=== PATIENT | male | born 1985 | race Asian ===

== ENCOUNTER 2023-03-07 07:21 | Emergency (ER) | payer SELFPAY ==
[2023-03-07 07:22] VITALS: BP 118/79; PULSE 62; RESP 17; TEMP 36.7; O2SAT 100; BMI 25.6
--- NOTE | 2023-03-07 07:37 | XR_ITS ---
PROCEDURE INFORMATION: Exam: XR Right Tibia and Fibula Exam date and time: 03/07/2023 7:58 AM Age: 37 years old Clinical indication: Injury or trauma; Fall; Laceration; Lower leg; Right; Without foreign body; Additional info: Fall-- 2 large lacerations to calf and lower leg TECHNIQUE: Imaging protocol: Radiologic exam of the right tibia and fibula. Views: 2 views. COMPARISON: No relevant prior studies available. FINDINGS: Bones/joints: No acute fracture or malalignment. Soft tissues: Normal. IMPRESSION: No acute fracture or malalignment.
--- NOTE | 2023-03-07 07:45 | PC.NURSE ---
XR AT BEDSIDE
--- NOTE | 2023-03-07 08:10 | PC.NURSE ---
dr saleem at bedside
--- NOTE | 2023-03-07 08:11 | HMH.EDWNDL ---
Discharge Plan Disposition Chief Complaint: Wound/Laceration Referrals Follow up/Referrals: Provider,Referral, [Primary Care Provider] - See instructions Activity Restrictions/Add. Instructions Additional Instructions/Restrictions: Keep the wound dry and clean at all times. Avoid immersing it in water. Do not go into a hot tub, Jacuzzi, swimming pool, pichardo, ocean. Return to the emergency department immediately if you get worse in any way. Have the wound checked by a health professional in about 3 days. Have the jeremy removed in approximately 7 to 10 days. Clinical Impressions Clinical Impression: Laceration Instructions Patient Instructions: DI for Laceration Repair Discharge ED Provider: Compa Zuniga Wound/Laceration HPI General Chief Complaint: Wound/Laceration Stated Complaint: lacerations Time Seen by Provider: 03/07/23 08:11 Mode of Arrival: EMS Source of Information: Patient and EMS Limitations: No Limitations Description of Symptoms (Recalled from ER Triage Doc. by RN): PT BROUGHT IN VIA EMS FOR A FALL INTO A GLASS DOOR. 2 LACERATIONS TO RLE 2 1/2 INCHES AND 3 INCHES. PT HAD BEEN DRINKING ETOH SINCE LAST NIGHT. History of Present Illness HPI narrative: The patient presents to the emergency department via EMS accompanied by his significant other. He suffered 2 lacerations to the right leg after having accidentally cut it on a glass door. The patient is admitting to having drank excessive alcohol last night. He denies any other injuries. Onset (ago): hour(s) (2) Related Data Allergies Allergy/AdvReac Type Severity Reaction Status Date / Time No Known Allergies Allergy Verified 03/07/23 07:36 [facility] Disclaimer: The information contained in this section may have been updated after the patient was seen, as this information can be updated by other users. Social History Smoking Status: Never smoker alcohol intake: current current occupational status: employed Travel in the last 8 weeks: None ROS Obtained: Yes All systems reviewed & no additional complaints except as documented Physical Exam General General appearance: alert Head Head exam: atraumatic Eye Eye exam: Present normal appearance ENT ENT exam: Present normal exam Neck Neck exam: Present normal inspection and full ROM; Absent tenderness or meningismus Chest Chest inspection: Present normal inspection and symmetric chest wall rise; Absent tenderness Respiratory Respiratory exam: Present normal lung sounds bilaterally; Absent respiratory distress or accessory muscle use Cardiovascular Cardiovascular exam: Present regular rate, normal rhythm and normal heart sounds Abdominal Exam Abdominal exam: Present soft and normal bowel sounds; Absent distention, tenderness, heel tap sign, Ray's sign, Rovsing's sign, tenderness at McBurney's Point or mass Extremities Exam Extremities exam: Present full ROM and other (There are 2 lacerations to the right leg. There is no active bleeding. The extremity is neurovascularly intact distally.) Back Exam Back exam: Present normal inspection; Absent CVA tenderness (R) or CVA tenderness (L) Neurological Exam Neurological exam: Present alert and oriented X3 Psychiatric Psychiatric exam: Present normal affect and normal mood Skin Skin exam: Present warm, dry, intact and normal color Medical Decision Making Chaz Inquiry Pt receiving controlled substance: No Vital Signs: 03/07/23 07:22 Temperature 98.0 F Temperature Source Oral Pulse Rate [Right Brachial] 62 Respiratory Rate 17 Blood Pressure [Right Arm] 118/79 Blood Pressure Mean [Right Arm] 92 Blood Pressure Source [Right Arm] Automatic Cuff Blood Pressure Position [Right Arm] Standing 02 Sat by Pulse Oximetry 100 Oxygen Delivery Method Nasal Cannula Orders (Tests/Meds): ED MEDICATIONS Discontinued Medications Generic Name Dose Route Start Last Admin Trade Name Freq PRN Reason Stop Dose Admin Lidocaine/
[2023-03-07 08:43] VITALS: BP 122/78; PULSE 70; RESP 18; TEMP 36.7; O2SAT 100
== END 2023-03-07 08:48 | disposition home or self-care (01) ==
PROVIDERS: Emergency Provider Emergency Medicine
DX: S81.811A Laceration without foreign body, right lower leg, initial encounter (principal); W25.XXXA Contact with sharp glass, initial encounter; F10.929 Alcohol use, unspecified with intoxication, unspecified; Z23 Encounter for immunization
CPT/HCPCS: 12006; 73590; 90471; 90714; 96372; 99283

== ENCOUNTER 2023-03-09 17:35 | Emergency (ER) | payer SELFPAY ==
[2023-03-09 17:45] VITALS: BP 124/80; PULSE 75; RESP 18; TEMP 37; O2SAT 100; BMI 23.5
[2023-03-09 17:58] VITALS: BP 124/80; PULSE 75; RESP 18; TEMP 37; O2SAT 100
--- NOTE | 2023-03-09 18:23 | EXP.UTC ---
Discharge Plan Disposition Patient Disposition: Home, Self-Care Condition: Good Referrals Follow up/Referrals: Provider,Referral, [Primary Care Provider] - See instructions Activity Restrictions/Add. Instructions Additional Instructions/Restrictions: Keep wound clean and dry like you was informed in the ED Removal of jeremy as instructed by the Emergency room Watch the area for redness, swelling, drainage or streaks if seen go the Emergency Room Return if needed Stay off of leg as much as possible Clinical Impressions Clinical Impression: Visit for wound check Discharge ED Provider: Letty Anderson [facility] [place] HPI General Stated complaint: ao 03/07 left leg lac Mode of Arrival: Ambulatory Source of Information: Patient Limitations: No Limitations Time Seen by Provider: 03/09/23 18:24 Description of Symptoms (Recalled from Triage Doc. by RN): PATIENT STATES HE HAD LACERATIONS TO RIGHT LOWER LEG THAT WERE CLOSED WITH JEREMY IN ER. HE WAS ADVISED BY ER MD TO HAVE LACERATIONS CHECKED FOR SIGNS/SYMPTOMS OF INFECTION IN 2 DAYS HEENT Symptoms (Recalled from RN notes): No Resp Symptoms (Recalled from RN notes): No Skin Symptoms (Recalled from RN notes): Yes MS Symptoms (Recalled from RN notes): No Functional Status (Recalled from RN notes): WNL History of Present Illness Provider Complaint: Patient had laceration to his right lower leg closed in the ED with jeremy States that the ED physician told him to follow up in a couple of days and let someone look at it to make sure that it isnt getting infected Denies drainage denies redness denies fever Related Data Allergies Allergy/AdvReac Type Severity Reaction Status Date / Time No Known Allergies Allergy Verified 03/07/23 07:36 Worker's Comp Is this a Worker's Comp case?: No [facility] Disclaimer: The information contained in this section may have been updated after the patient was seen, as this information can be updated by other users. Social History (Updated 03/07/23 @ 08:34 by oCmpa Zuniga MD) Smoking Status: Never smoker alcohol intake: current current occupational status: employed Travel in the last 8 weeks: None ROS Obtained: Yes All systems reviewed & no additional complaints except as documented and Yes Systems reviewed as appropriate & no additional complaints except as documented Constitutional Constitutional: Reports system reviewed and no additional complaints, except as documented, Reports as per HPI, Denies chills and Denies fever(s) ENT Ears, Nose, Mouth, and Throat: Reports system reviewed and no additional complaints, except as documented and Reports as per HPI Cardiovascular Cardiovascular: Reports system reviewed and no additional complaints, except as documented and Reports as per HPI Respiratory Respiratory: Reports system reviewed and no additional complaints, except as documented and Reports as per HPI Gastrointestinal Gastrointestingal: Reports system reviewed and no additional complaints, except as documented and as per HPI Musculoskeletal Musculoskeletal: Reports system reviewed and no additional complaints, except as documented and Reports as per HPI Integumentary/Breasts Skin/Breast: Reports system reviewed and no additional complaints, except as documented and Reports as per HPI Comments: wound check on laceration on right lower leg/calf Physical Exam General General appearance: alert and in no apparent distress Respiratory Respiratory exam: Present normal lung sounds bilaterally; Absent respiratory distress or wheezes Cardiovascular Cardiovascular exam: Present regular rate, normal rhythm and normal heart sounds Expanded Lower Extremity Exam Right: Leg image: 1. patient has two lacerations noted that was closed with jeremy on right lower leg No redness, no drainage no swelling noted at this time Lower leg exam: Present other (lacerations that was closed a couple days ago in the ED no redness, no drainage, no swel
== END 2023-03-09 18:38 | disposition home or self-care (01) ==
PROVIDERS: Emergency Provider Nurse Practitioner
DX: S81.811A Laceration without foreign body, right lower leg, initial encounter (principal); Z51.89 Encounter for other specified aftercare
CPT/HCPCS: 99211; 99213; G0463

== ENCOUNTER 2023-03-11 11:41 | Emergency (ER) | payer SELFPAY ==
[2023-03-11 12:02] VITALS: BP 134/83; PULSE 79; RESP 20; TEMP 36.8; O2SAT 96
[2023-03-11 12:31] VITALS: BP 132/86; PULSE 78; O2SAT 97
--- NOTE | 2023-03-11 12:46 | CT_ITS ---
FINAL REPORT CLINICAL HISTORY: trauma/pain rt lower leg FINDINGS: Thin section axial CT images of the abdomen, pelvis and lower extremities were obtained with contrast. Multiplanar reformatted images were also obtained and reviewed. ABDOMEN AND PELVIS: There is no abdominal aortic aneurysm or dissection. The celiac axis and proximal superior mesenteric artery are unremarkable. There is no renal artery stenosis. The inferior mesenteric artery is patent. There is no significant stenosis of the right common iliac artery or external right iliac artery. There is no significant stenosis of the left common iliac artery or external left iliac artery. The internal iliac arteries are patent. RIGHT LOWER EXTREMITY: There is no significant stenosis of the right common femoral or superficial femoral arteries. The right deep femoral artery is patent. The right popliteal artery is patent. There is three-vessel runoff to the distal lower leg. LEFT LOWER EXTREMITY: There is no significant stenosis of the left common femoral or superficial femoral arteries. The left deep femoral artery is patent. The left popliteal artery is patent. There is three-vessel runoff to the distal lower leg. IMPRESSION: No significant vascular disease. Reviewed, Interpreted and Dictated by Bernard Rayo III, MD Transcribed by Jocelin Byrd Authenticated and [facility]
--- NOTE | 2023-03-11 12:49 | HMH.EDGENADL ---
Discharge Plan Disposition Patient Disposition: Home, Self-Care Condition: Good Referrals Follow up/Referrals: Provider,Referral, [Primary Care Provider] - See instructions Activity Restrictions/Add. Instructions Additional Instructions/Restrictions: At this time was felt you are safe to be discharged home. If new or worsening symptoms please not hesitate to return to the emergency department. Please follow-up for your staple removal as discussed Clinical Impressions Clinical Impression: Acute pain of right lower extremity Discharge ED Provider: Ulices Cazares General Adult HPI General Chief complaint: Extremity Injury, Lower Stated complaint: RT leg inflammation/pain 03/07 jeremy Time Seen by Provider: 03/11/23 12:40 Mode of Arrival: Wheelchair Source of Information: Patient and Significant Other Limitations: No Limitations Description of Symptoms (Recalled from ER Triage Doc. by RN): pt to ed c/o right lower leg pain. pt reports he had jeremy placed 03/07 and reports he belives his leg is infected. pt denies fever. pt reports increased pain. minimal drainage noted to existing dressing. pt seemingly lethargic on arrival. SO at the bedside states pt has been drinking. History of Present Illness HPI narrative: Patient is a 37-year-old male with no significant past medical history who presents to the emergency department for evaluation of right lower extremity pain. Patient received traumatic injury when he accidentally put his right leg through glass on 03-07-2023 resulting in 2 lacerations over his right distal lower extremity. X-ray was obtained which showed no acute fracture or malalignment, wounds underwent primary repair with jeremy without incident and patient was successfully discharged. Patient has since had worsening right lower extremity pain distal to the sites of laceration, his extremity has become cold compared to the contralateral side, pain is 7 out of 10. Patient is able to minimally ambulate. Patient has drank a few beers prior to arrival and is accompanied by his significant other. No other acute complaints at this time. Related Data Allergies Allergy/AdvReac Type Severity Reaction Status Date / Time No Known Allergies Allergy Verified 03/07/23 07:36 [facility] Disclaimer: The information contained in this section may have been updated after the patient was seen, as this information can be updated by other users. Social History (Updated 03/07/23 @ 08:34 by Compa Zuniga MD) Smoking Status: Never smoker alcohol intake: current current occupational status: employed Travel in the last 8 weeks: None ROS Obtained: Yes Systems reviewed as appropriate & no additional complaints except as documented Physical Exam General General appearance: alert and in no apparent distress Head Head exam: atraumatic and normocephalic Eye Eye exam: Present PERRL and EOMI ENT ENT exam: Present mucous membranes moist Neck Neck exam: Present normal inspection Chest Chest inspection: Present normal inspection and symmetric chest wall rise Respiratory Respiratory exam: Present normal lung sounds bilaterally; Absent respiratory distress Cardiovascular Cardiovascular exam: Present regular rate and normal rhythm Abdominal Exam Abdominal exam: Present soft; Absent tenderness Extremities Exam Extremities exam: Present other (2 linear lacerations distal right lower extremity well approximated with jeremy, compartments soft in calf, edema over the ankle, palpable dorsal pedal pulse, dopplerable pulse posterior tibial with overlying edema. No significant pain to passive stretch.) Neurological Exam Neurological exam: Present alert and oriented X3 Psychiatric Psychiatric exam: Present normal affect Skin Skin exam: Present warm and dry Medical Decision Making Chaz Inquiry Pt receiving controlled substance: No Vital Signs: 03/11/23 12:02 03/11/23 12:31 03/11/23 13:00 Temperature 98.2 F Temperat
--- NOTE | 2023-03-11 12:50 | PC.NURSE ---
Ct notified of scan. per MD, we are not waiting on labs
[2023-03-11 13:00] VITALS: BP 121/79; PULSE 87; O2SAT 98
[2023-03-11 13:40] LABS: Basophils # 0.1 K/mm3 (0-0.2); Basophils % 1.4 % (0.1-2.0); Eosinophils # 0.1 K/mm3 (0.0-0.4); Eosinophils % 2.5 % (0.1-12.0); Hemoglobin 14.6 g/dL (14.1-18.0); Lymphocytes # 2.8 K/mm3 (0.7-4.5); Lymphocytes % 48.8 % (10-50); Mean Corpuscular HGB Conc 32.4 g/dL (31.8-35.4); Mean Corpuscular Hemoglobin 31.8 pg (27.0-31.2); Mean Corpuscular Volume 98.1 fl (80-94); Mean Platelet Volume 7.9 fl (7.4-10.4); Monocytes # 0.5 K/mm3 (0.1-1.0); Monocytes % 8.8 % (1.7-9.3); Neutrophils # 2.3 K/mm3 (1.8-7.8); Neutrophils % 38.5 % (37.0-80.0); Platelet Count 227 K/mm3 (142-424); Red Blood Count 4.59 M/mm3 (4.60-6.20); Red Cell Distribution Width 12.6 % (11.5-17.5); White Blood Count 5.8 K/mm3 (4.8-10.8)
[2023-03-11 13:42] LABS: Alanine Aminotransferase 109 U/L (12-78); Albumin Level 4.3 g/dl (3.5-5.0); Albumin/Globulin Ratio 1.2 (1.1-1.8); Alkaline Phosphatase 91 U/L (38-126); Anion Gap 7.2 mEq/L (5-15); Aspartate Amino Transferase 97 U/L (17-59); Bilirubin,Total 0.5 mg/dl (0.2-1.3); Blood Urea Nitrogen 7 mg/dl (9-20); Calcium 8.5 mg/dl (8.4-10.2); Carbon Dioxide 28 mmol/L (22.0-30.0); Chloride 109 mmol/L (98-107); Creatinine Clearance Estimated 6 mL/min (50-200); Estimated Glomerular Filt Rate 152 ml/min (>60); GFR (African American) 184 ML/MIN (>60); Globulin 3.6 g/dL (1.3-3.2); Glucose 102 mg/dl (74-100); Potassium 4.2 mmoL/L (3.5-5.1); Sodium 140 mmol/L (136-145); Total Protein,Serum 7.9 g/dl (6.3-8.2)
[2023-03-11 13:51] LABS: Creatine Kinase 92 U/L (55-170)
[2023-03-11 14:05] LABS: C-Reactive Protein 6.8 mg/L (0-4)
[2023-03-11 14:36] LABS: Erythrocyte Sedimentation Rate 22 mm/hr (0-15)
[2023-03-11 16:12] VITALS: BP 118/80; PULSE 84; RESP 20; TEMP 36.8; O2SAT 99
== END 2023-03-11 16:13 | disposition home or self-care (01) ==
PROVIDERS: Emergency Provider Emergency Medicine
DX: M79.604 Pain in right leg (principal); G89.18 Other acute postprocedural pain
CPT/HCPCS: 75635; 80053; 82550; 85025; 85651; 86140; 96374; 99285; Q9967

== ENCOUNTER 2023-03-17 12:57 | Emergency (ER) | payer SELFPAY ==
--- NOTE | 2023-03-17 13:32 | EXP.UTC ---
Discharge Plan Referrals Follow up/Referrals: Provider,ReferralMD [Primary Care Provider] - See instructions [place]charge ED Provider[place] Kendrick Gall[place] [facility] [place] General Stated complaint: Suture removal Time Seen by Provider: 03/17/23 13:32 Related Data Allergies Allergy/AdvReac Type Severity Reaction Status Date / Time No Known Allergies Allergy Verified 03/07/23 07:36 [facility] Disclaimer: The information contained in this section may have been updated after the patient was seen, as this information can be updated by other users. Social History (Updated 03/07/23 @ 08:34 by Compa Zuniga MD) Smoking Status: Never smoker alcohol intake: current current occupational status: employed Travel in the last 8 weeks: None
[2023-03-17 13:45] VITALS: BP 132/69; BP 143/91; PULSE 78; RESP 20; TEMP 36.9; O2SAT 100; BMI 22.1
--- NOTE | 2023-03-17 13:50 | PC.NURSE ---
Pt came into have jeremy removed. As we were taking out jeremy pt became light headed. We stopped laid pts back, propped fit up, took vitals they were unremarkable, and placed wet rag on pts head. We continued to take out a few more jeremy and explained that some of them were not ready to come out. Kept asking neuro questions (Name, , who spouse was). Once he come more alert gave a few drinks of OJ. Advised that he needs to come back on to try and take out the rest. Kept pt to monitor for a few mins vitals have continued to be stable. He got up and walked by him self and stated that he felt stable and okay. stated that she was going to stay home with him to watch him.
== END 2023-03-17 13:45 | disposition home or self-care (01) ==
PROVIDERS: Emergency Provider Nurse Practitioner Family
DX: Z53.21 Procedure and treatment not carried out due to patient leaving prior to being seen by health care provider (principal)

== ENCOUNTER 2023-03-20 15:28 | Emergency (ER) | payer SELFPAY ==
[2023-03-20 16:08] VITALS: BP 133/85; PULSE 92; RESP 16; TEMP 36.8; O2SAT 98; BMI 22.1
[2023-03-20 16:10] VITALS: BP 133/85; PULSE 92; RESP 16; TEMP 36.8
== END 2023-03-20 16:14 | disposition home or self-care (01) ==
PROVIDERS: Emergency Provider Physician Assistant
DX: Z48.02 Encounter for removal of sutures (principal); S81.812A Laceration without foreign body, left lower leg, initial encounter

== ENCOUNTER 2023-07-03 14:51 | Emergency (ER) | payer SELFPAY ==
[2023-07-03 14:52] VITALS: BP 144/91; PULSE 85; RESP 16; TEMP 36.9; O2SAT 98; BMI 22.0
--- NOTE | 2023-07-03 15:19 | PC.NURSE ---
Patient called out stating he is in a lot of pain; MD notified no new orders at this time. Call quevedo within reach
--- NOTE | 2023-07-03 15:26 | CT_ITS ---
FINAL REPORT TECHNIQUE: Axial imaging of the lumbar spine was obtained without contrast. Sagittal and coronal reformatted images were also obtained and reviewed. This study was performed with techniques to keep radiation doses as low as reasonably achievable (ALARA). Individualized dose reduction techniques using automated exposure control or adjustment of mA and/or kV according to the patient's size were employed. CLINICAL HISTORY: LBP never imaged, atraumatic COMPARISON: None FINDINGS: There is no fracture. The vertebral alignment is normal. The disc spaces are preserved.There is no evidence of significant central canal stenosis. T12-L1: No evidence of central canal stenosis or neural foraminal narrowing. L1-L2: No evidence of central canal stenosis or neural foraminal narrowing. L2-L3: No evidence of central canal stenosis or neural foraminal narrowing. L3-L4: An annular bulge is present. No evidence of central canal stenosis or neural foraminal narrowing. L4-L5: An annular bulge is present as well as a broad-based left paracentral disc protrusion which impinges on the left L5 nerve root. There is mild right and moderate left neural foraminal narrowing. No evidence of central canal stenosis is seen. L5-S1: There is partial sacralization of the L5 vertebral body on the left. No evidence of central canal stenosis or neural foraminal narrowing. IMPRESSION: Degenerative change most prominent at the L4-5 level as described. Reviewed, Interpreted and Dictated by Bernard Rayo III, MD Transcribed by Renu Mckeon Authenticated and [facility]
--- NOTE | 2023-07-03 15:27 | HMH.EDGENADL ---
Discharge Plan Disposition Patient Disposition: Home, Self-Care Referrals Follow up/Referrals: Janes Kirk MD [Staff Physician] - See instructions Provider,MD Jose Luis [Primary Care Provider] - See instructions Activity Restrictions/Add. Instructions Additional Instructions/Restrictions: Primary care referral has been placed, call them to discuss options regarding insurance and physical therapy. Call your family doctor to establish care for this visit to the emergency department and schedule follow-up within 48 hours to ensure improvement. If you have any worsening of your condition or any other concerning signs or symptoms, including weakness, inability to urinate, or incontinence of stool or urine, return to the emergency department or your primary care doctor for further evaluation. Take Tylenol 1000 mg every 6 hours (4 times daily) and ibuprofen 400 mg every 6 hours (4 times daily) as needed with food and water to prevent GI upset and kidney damage. Clinical Impressions Clinical Impression: Lumbar radiculopathy Sciatica Qualifiers: Laterality: left Qualified Code(s): M54.32 - Sciatica, left side Instructions Patient Instructions: DI for Low Back Pain Discharge ED Provider: Jakub Lion General Adult HPI General Chief complaint: Back Pain/Injury Stated complaint: right side lower back Time Seen by Provider: 07/03/23 15:17 Mode of Arrival: Ambulatory Source of Information: Patient Limitations: No Limitations Description of Symptoms (Recalled from ER Triage Doc. by RN): Presents to ED with complaints of non-traumatic midlumbar pain x 2 days. Denies OTC meds [employer]PER[employer]. Patient is currently wearing a back brace with minimal relief. History of Present Illness HPI narrative: Is a 38-year-old male with history of atraumatic back pain presenting with back pain. Patient states that about 2 days prior to arrival, he was getting out of the shower and lifted his leg and had sudden onset lower back pain. No evidence of weakness. No bowel or bladder dysfunction, saddle anesthesia, heavy lifting or exertion. Has not taken anything for the pain. Pain is severe when he tries to move or change positions, better when resting. Radiates down his left leg. Related Data Allergies Allergy/AdvReac Type Severity Reaction Status Date / Time No Known Allergies Allergy Verified 03/07/23 07:36 [facility] Disclaimer: The information contained in this section may have been updated after the patient was seen, as this information can be updated by other users. Social History (Updated 03/07/23 @ 08:34 by Compa Zuniga MD) Smoking Status: Current every day smoker alcohol intake: current current occupational status: employed Travel in the last 8 weeks: None ROS Obtained: Yes All systems reviewed & no additional complaints except as documented Physical Exam General General appearance: alert, in no apparent distress and other ( ) Head Head exam: atraumatic and normocephalic Eye Eye exam: Present normal appearance, PERRL and EOMI ENT ENT exam: Present mucous membranes moist Neck Neck exam: Present normal inspection, full ROM and trachea midline Respiratory Respiratory exam: Absent respiratory distress, wheezes, stridor, accessory muscle use or prolonged expiratory phase Cardiovascular Cardiovascular exam: Present regular rate and normal rhythm Abdominal Exam Abdominal exam: Present soft; Absent distention, tenderness, guarding, rebound, rigidity or normal bowel sounds Extremities Exam Extremities exam: Absent edema Back Exam Back exam: Present tenderness, muscle spasm, vertebral tenderness and sciatic notch tenderness (L); Absent straight leg raise (R) Neurological Exam Neurological exam: Present alert, oriented X3, CN II-XII intact and normal gait; Absent motor sensory deficit Skin Skin exam: Present warm and dry; Absent diaphoresis or erythema Medical Decision Making Medical Records Medical records reviewed: Yes I review
--- NOTE | 2023-07-03 15:59 | PC.NURSE ---
Lab notified for lab order.
--- NOTE | 2023-07-03 16:10 | PC.NURSE ---
Rounded on patient nothing needed at this time. Call quevedo within reach.
[2023-07-03 16:14] LABS: Basophils % 0.7 % (0.1-2.0); Eosinophils # 0.1 K/mm3 (0.0-0.4); Eosinophils % 1.4 % (0.1-12.0); Hematocrit 46.5 % (42.0-52.0); Hemoglobin 15.1 g/dL (14.1-18.0); Lymphocytes # 1.2 K/mm3 (0.7-4.5); Mean Corpuscular HGB Conc 32.4 g/dL (31.8-35.4); Mean Corpuscular Hemoglobin 30.2 pg (27.0-31.2); Mean Corpuscular Volume 93.1 fl (80-94); Mean Platelet Volume 8.6 fl (7.4-10.4); Monocytes # 0.3 K/mm3 (0.1-1.0); Monocytes % 7.4 % (1.7-9.3); Neutrophils # 2.7 K/mm3 (1.8-7.8); Neutrophils % 62.5 % (37.0-80.0); Platelet Count 141 K/mm3 (142-424); Red Blood Count 4.99 M/mm3 (4.60-6.20); Red Cell Distribution Width 13.7 % (11.5-17.5); White Blood Count 4.3 K/mm3 (4.8-10.8)
[2023-07-03 16:54] VITALS: BP 135/93; PULSE 80; RESP 16; TEMP 36.9; O2SAT 98
== END 2023-07-03 16:59 | disposition home or self-care (01) ==
PROVIDERS: Emergency Provider Emergency Medicine
DX: M54.42 Lumbago with sciatica, left side (principal); M54.16 Radiculopathy, lumbar region; F17.200 Nicotine dependence, unspecified, uncomplicated
CPT/HCPCS: 36415; 72131; 85025; 96372; 99284

== ENCOUNTER 2023-10-14 21:23 | Emergency (ER) | payer SELFPAY ==
[2023-10-14 21:21] VITALS: BP 118/75; PULSE 84; RESP 14; TEMP 36.7; O2SAT 97; BMI 26.6
[2023-10-14 21:30] VITALS: BP 142/110; PULSE 73; O2SAT 96
--- NOTE | 2023-10-14 21:35 | XR_ITS ---
PROCEDURE INFORMATION: Exam: XR Chest Exam date and time: 10/14/2023 9:42 PM Age: 38 years old Clinical indication: Pain; Left-sided; Additional info: Trauma, left lateral rib pain TECHNIQUE: Imaging protocol: Radiologic exam of the chest. Views: 2 views. COMPARISON: No relevant prior studies available. FINDINGS: Lungs: Unremarkable. No consolidation. Pleural spaces: Unremarkable. No pleural effusion. No pneumothorax. Heart/Mediastinum: Unremarkable. No cardiomegaly. Bones/joints: Unremarkable. IMPRESSION: No acute intrathoracic organ injury.
--- NOTE | 2023-10-14 21:35 | CT_ITS ---
PROCEDURE INFORMATION: Exam: CT Head Without Contrast Exam date and time: 10/14/2023 9:54 PM Age: 38 years old Clinical indication: Injury or trauma; Additional info: Head trauma, AMS TECHNIQUE: Imaging protocol: Computed tomography of the head without contrast. Radiation optimization: All CT scans at this facility use at least one of these dose optimization techniques: automated exposure control; mA and/or kV adjustment per patient size (includes targeted exams where dose is matched to clinical indication); or iterative reconstruction. REPORTING DATA: Count of CT and Cardiac NM exams in prior 12 months: This patient has received 2 known CTs and 0 known cardiac nuclear medicine studies in the 12 months prior to the current study. COMPARISON: No relevant prior studies available. FINDINGS: Brain: Mild volume loss of the cerebellum, possibly chronic. Cerebral ventricles: No ventriculomegaly. Paranasal sinuses: Small retention cysts in the paranasal sinuses. Mastoid air cells: Visualized mastoid air cells are well aerated. Orbital cavities: Chronic appearing left orbital medial wall fracture. Bones/joints: Unremarkable. No acute fracture. Soft tissues: Small scalp hematoma overlying the left parietal bone. IMPRESSION: No acute intracranial findings.
--- NOTE | 2023-10-14 21:35 | CT_ITS ---
PROCEDURE INFORMATION: Exam: CT Cervical Spine Without Contrast Exam date and time: 10/14/2023 9:55 PM Age: 38 years old Clinical indication: Injury or trauma; Additional info: Head trauma, AMS TECHNIQUE: Imaging protocol: Computed tomography of the cervical spine without contrast. Radiation optimization: All CT scans at this facility use at least one of these dose optimization techniques: automated exposure control; mA and/or kV adjustment per patient size (includes targeted exams where dose is matched to clinical indication); or iterative reconstruction. REPORTING DATA: Count of CT and Cardiac NM exams in prior 12 months: This patient has received 2 known CTs and 0 known cardiac nuclear medicine studies in the 12 months prior to the current study. 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 Lungs: Lung apices are normal. Soft tissues: Unremarkable. IMPRESSION: No acute fracture or malalignment of the cervical spine.
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
[2023-10-14 22:00] VITALS: BP 134/95; PULSE 76; O2SAT 99
--- NOTE | 2023-10-14 22:19 | PC.NURSE ---
MD @ bedside updating pt and pt's family of POC
--- NOTE | 2023-10-14 23:10 | PC.NURSE ---
Rounded on patient; patient alert and oriented x 4. Patient ambulated around room. Call light within reach of patient
[2023-10-14 23:26] VITALS: BP 128/82; PULSE 72; RESP 15; TEMP 36.7; O2SAT 100
== END 2023-10-14 23:28 | disposition home or self-care (01) ==
PROVIDERS: Emergency Provider Emergency Medicine
DX: F10.129 Alcohol abuse with intoxication, unspecified (principal); S06.0X0A Concussion without loss of consciousness, initial encounter; S01.01XA Laceration without foreign body of scalp, initial encounter; S20.219A Contusion of unspecified front wall of thorax, initial encounter; W19.XXXA Unspecified fall, initial encounter
CPT/HCPCS: 70450; 71046; 72125; 99285

== ENCOUNTER 2023-10-24 11:13 | Emergency (ER) | payer SELFPAY ==
[2023-10-24 11:30] VITALS: BP 113/81; PULSE 90; RESP 18; TEMP 36.8; O2SAT 98; BMI 25.3
[2023-10-24 11:38] VITALS: BP 113/81; PULSE 90; RESP 18; TEMP 36.8; O2SAT 98
== END 2023-10-24 11:40 | disposition home or self-care (01) ==
PROVIDERS: Emergency Provider Nurse Practitioner
DX: Z48.02 Encounter for removal of sutures (principal); S01.01XA Laceration without foreign body of scalp, initial encounter

== ENCOUNTER 2024-03-08 06:13 | Emergency (ER) | payer SELFPAY ==
[2024-03-08 06:13] VITALS: BP 132/86; PULSE 81; RESP 17; TEMP 36.7; O2SAT 97; BMI 26.3
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
[2024-03-08] MEDS: ACETAMINOPHEN 500MG TAB 500 MG PO (06:29)
[2024-03-08] MEDS: IBUPROFEN 600 MG TABLET PO (06:29)
[2024-03-08 07:00] VITALS: BP 115/74; PULSE 69; PULSE 76; RESP 18; TEMP 36.7; O2SAT 100; O2SAT 97
== END 2024-03-08 07:09 | disposition home or self-care (01) ==
PROVIDERS: Emergency Provider Emergency Medicine
DX: M79.601 Pain in right arm (principal); F17.210 Nicotine dependence, cigarettes, uncomplicated; F10.929 Alcohol use, unspecified with intoxication, unspecified
CPT/HCPCS: 73030; 73060; 99284